=== PATIENT | female | born 1995 | race Caucasian/White ===

== ENCOUNTER 2020-06-04 11:28 | Emergency (ER) | payer OTHER, MEDICAID, SELFPAY ==
[2020-06-04] VITALS (9 sets, daily range): BP systolic 108–131; BP diastolic 55–79; PULSE 71–84; RESP 14; TEMP 37; O2SAT 93–99; BMI 34.5
[2020-06-04 14:22] LABS: Alanine Aminotransferase 14 IU/L (<35); Albumin 4.6 g/dL (3.5-5.0); Albumin Globulin Ratio 1.3 (1.0-2.8); Alkaline Phosphatase 109 U/L (38-126); Aspartate Aminotransferase 21 IU/L (14-36); BUN Creatinine Ratio 10.9 (6-22); Bilirubin Total 0.2 mg/dL (0.2-1.3); Blood Urea Nitrogen 7 mg/dL (7-17); Calcium 9.6 mg/dL (8.4-10.2); Carbon Dioxide 28 mmol/L (22-32); Chloride 104 mmol/L (98-107); Estimated Glomerular Filt Rate > 60.0 mL/min (>60); Globulin 3.5 g/dL (1.7-4.1); Glucose 98 mg/dL (70-100); HEMOLYSIS < 15 (0-50); Lipase 66 U/L (23-300); Potassium 3.9 mmol/L (3.4-5.1); Sodium 137 mmol/L (137-145); Total Protein 8.1 g/dL (6.3-8.2)
[2020-06-04 14:28] LABS: Add Manual Diff / Slide Review NO; Basophils Absolute Auto 0 /uL (0-100); Basophils Percent Auto 0.5 % (0-2); Eosinophils Absolute Auto 100 /uL (0-450); Eosinophils Percent Auto 1.8 % (2-4); Hematocrit 40.5 % (36-46); Hemoglobin 14.1 g/dL (12.0-16.0); Lymphocytes Absolute Auto 2200 /uL (1100-4500); Lymphocytes Percent Auto 29.8 % (25-40); Mean Corpuscular HGB Conc 34.9 % (30-36); Mean Corpuscular Hemoglobin 30.1 PG (26-34); Mean Corpuscular Volume 86.3 fL (80-100); Monocytes Absolute Auto 600 /uL (0-900); Monocytes Percent Auto 8.5 % (3-14); Neutrophils Absolute Auto 4500 /uL (1500-7000); Neutrophils Percent Auto 59.4 % (50-75); Platelet Count 312 X10^3/uL (150-400); Red Blood Cell Count 4.69 X10^6/uL (4.0-5.2); Red Cell Distribution Width 12.5 % (11.6-14.8); White Blood Cell Count 7.5 X10^3/uL (4.5-11.0)
[2020-06-04 14:50] LABS: Bacteria Urine None Seen
--- NOTE | 2020-06-04 15:03 | DI.CT.S_ITS ---
PROCEDURE: CT ABDOMEN PELVIS W CON INDICATIONS: abdpain, dloose stools TECHNIQUE: After the administration of intravenous contrast, 5 mm thick sections acquired from the diaphragm to the symphysis. 5 mm coronal and sagittal reformats were acquired. For radiation dose reduction, the following was used: automated exposure control, adjustment of mA and/or kV according to patient size. COMPARISON: None. FINDINGS: Image quality: Excellent. ABDOMEN: Lung bases: Lung bases are clear. Punctate calcified granuloma. Heart size is normal. Solid organs: Liver is normal in size and enhancement. Focal fatty infiltration at the falciform ligament. Gallbladder is decompressed. Biliary system is non dilated. Pancreas enhances normally. Spleen is normal in size and enhancement. No adrenal nodules. Kidneys demonstrate normal size and enhancement, without hydronephrosis. Small left cortical hypodensity which is too small to further characterize. Peritoneum and bowel: Bowel loops demonstrate normal wall thickness and caliber. Appendix is partially visualized and not dilated. No free fluid or air. Nodes and vessels: No retroperitoneal or mesenteric adenopathy by size criteria. Aorta and inferior vena cava are normal in size. Miscellaneous: Tiny fat containing periumbilical hernia. PELVIS: Genitourinary: Bladder is unremarkable. Retroverted uterus. Trace free fluid in the pelvis. Miscellaneous: No inguinal hernias or adenopathy. Bones: No suspicious bony lesions. No vertebral body compression fractures. IMPRESSION: No acute inflammatory process is identified. Trace free fluid in the pelvis is felt to be physiologic in this young female. Dictated by: Simon Adams M.D. on 06/04/2020 at 15:13 Approved by: Simon Adams M.D. on 06/04/2020 at 15:18
[2020-06-04 15:11] LABS: Culture Indicated Urine Specimen Cultured; RBC Urine 1-5/HPF (0-5/HPF); Squamous Epithelial Cell Urine 0-1 /HPF (0-5/HPF); WBC Urine 1-5/HPF (0-5/HPF)
[2020-06-04] MEDS: PANTOPRAZOLE 40 MG VIAL IV (15:40)
[2020-06-04] MEDS: ONDANSETRON 4 MG/2 ML INJ IV (15:40)
--- NOTE | 2020-06-04 16:27 | ED_ITS ---
HPI - Abdominal Pain <JESUSITA GonzalezBC - Last Filed: 06/04/20 17:10> General Chief Complaint: Abdominal Pain Stated Complaint: abd pain Time Seen by Provider: 06/04/20 12:37 Source: patient Mode of arrival: Ambulatory Limitations: no limitations History of Present Illness HPI narrative: The patient is a 24-year-old female current smoker who denies pertinent medical history who presents with a chief complaint of continued epigastric abdominal pain. She has seen and evaluated in outside facility yesterday where they did lab work and everything was well. She felt improved, went home and felt worse. She complains of 5 episodes of diarrhea over the past 2-3 days. She states this started 3 days ago when she ate lunch, which was H wrap. All the sudden she felt very uneasy in queasy in her stomach. She has had nausea with no vomiting. No fevers. No muscle aches or chills. She denies any known coronavirus exposures. She states that the other hospital told her she would feel better in 24-48 hours and if she did not to go back. She came here instead. She presents with her stepmother, and they state she had no imaging at the outside hospital. She denies any dysuria urgency or frequency. She denies any possibility of . She has not followed up with primary care provider. She is not concerned about sexually transmitted infections. She denies any vaginal discharge. Related Data Previous Rx's Medication Instructions Recorded ondansetron 4 mg PO Q6H PRN #20 tab 06/04/20 pantoprazole [Protonix] 40 mg PO DAILY #20 tab 06/04/20 sucralfate [Carafate] 10 ml PO QACHS #100 ml 06/04/20 Allergies Allergy/AdvReac Type Severity Reaction Status Date / Time No Known Drug Allergies Allergy Verified 06/04/20 11:37 Review of Systems <BRIE Gonzalez - Last Filed: 06/04/20 17:10> Review of Systems Narrative: GENERAL: Denies chills, fatigue, malaise, fever, sweats. HEENT: Denies sinus pain, ear pain, sore throat, difficulty swallowing, dizziness. RESPIRATORY: Denies dyspnea, cough, wheezing, hemoptysis, sputum. CARDIOVASCULAR: Denies chest pain, palpitations, orthopnea, edema, GASTROINTESTINAL: See HPI : Denies dysuria, frequency, incontinence, hematuria, urinary retention. MUSCULOSKELETAL: denies weakness, joint pain, or bony pain SKIN: Denies rash, skin lesions, or other NEUROLOGIC: Denies weakness, headache, numbness, change in speech, confusion, seizures, incoordination. PSYCHIATRIC: No concerning psychosocial issues. 12 point review of systems is negative except for those stated above Patient History <BRIE Gonzalez - Last Filed: 06/04/20 17:10> Social History Smoking Status: Current every day smoker Smoking Status: Current every day smoker tobacco type: vaping alcohol intake frequency: holidays/special occasions only Substance Use Type: does not use Exam <BRIE Gonzalze - Last Filed: 06/04/20 17:10> Narrative Exam Narrative: GENERAL: This is a well-nourished, well-developed patient, in no acute HEAD: Atraumatic. Normocephalic. No temporal or scalp tenderness. EYES: Pupils equal round and reactive. Extraocular motions intact. No scleral icterus. No injection or drainage. ENT: Nose without bleeding, purulent drainage or septal hematoma. Wearing a mask. Airway patent. NECK: Trachea midline. No JVD or lymphadenopathy. Supple, nontender, no meningeal signs. CARDIOVASCULAR: Regular rate and rhythm RESPIRATORY: Clear to auscultation. Breath sounds equal bilaterally. No wheezes, rales, or rhonchi. No cough. No increased respiratory effort. No accessory muscle use. GASTROINTESTINAL: Abdomen soft, pain to epigastric palpation with slight guarding, nondistended. No hepato-splenomegaly, or palpable masses. Active bowel sounds all 4 quadrants. Negative Boggs sign. EXTREMITIES: No clubbing, cyanosis, or edema. No joint tenderness, effusion, or edema noted. BACK: Nontender without deformity or crepitance. No flank tenderness. NEURO: AOx3. SKIN: No rash or erythema on visible skin Initial Vital Signs Initial Vital Signs: Vital Signs Temperature 98.6 F 06/04/20 11:37 Pulse Rate 84 06/04/20 11:37 Respiratory Rate 14 06/04/20 11:37 Blood Pressure 118/79 06/04/20 11:37 Pulse Oximetry 99 01/09/21 11:37 <Denae Franklin DO - Last Filed: 06/05/20 07:25> Initial Vital Signs Initial Vital Signs: Vital Signs Temperature 98.6 F 06/04/20 11:37 Pulse Rate 84 06/04/20 11:37 Respiratory Rate 14 06/04/20 11:37 Blood Pressure 118/79 06/04/20 11:37 Pulse Oximetry 99 06/04/20 11:37 Scores <BRIE Gonzalez - Last Filed: 06/04/20 17:10> GCS [place] coma scale eye opening: Spontaneous [place] coma scale verbal response: Orientated [place] coma scale motor response: Obey commands [place] coma scale total score: 15 Course <BRIE Gonzalez - Last Filed: 06/04/20 17:10> Orders Ordered: Discontinued Medications Ondansetron HCl (Ondansetron 4 Mg/2 Ml Inj) 4 mg IV NOW ONE Stop: 06/04/20 14:59 Last Admin: 06/04/20 15:40 Dose: 4 mg Documented by: RAJINDER Pantoprazole Sodium (Pantoprazole 40 Mg Vial) 40 mg IV NOW ONE Stop: 06/04/20 14:55 Last Admin: 06/04/20 15:40 Dose: 40 mg Documented by: RAJINDER Sucralfate (Sucralfate 1 Gm/10 Ml Oral Susp) 1 gm PO NOW ONE Stop: 06/04/20 16:51 Last Admin: 06/04/20 17:04 Dose: 1 gm Documented by: RAJINDER Vital Signs Vital signs: Vital Signs - 8 hr 06/04/20 11:37 06/04/20 14:34 06/04/20 14:35 Temperature 98.6 F Pulse Rate 84 78 Respiratory Rate 14 Blood Pressure 118/79 131/75 Pulse Oximetry 99 93 99 06/04/20 15:00 06/04/20 15:30 06/04/20 16:00 Temperature Pulse Rate 76 79 71 Respiratory Rate Blood Pressure 117/55 L Pulse Oximetry 98 99 98 <Denae Franklin DO - Last Filed: 06/05/20 07:25> Orders Ordered: Discontinued Medications Ondansetron HCl (Ondansetron 4 Mg/2 Ml Inj) 4 mg IV NOW ONE Stop: 06/04/20 14:59 Last Admin: 06/04/20 15:40 Dose: 4 mg Documented by: RAJINDER Pantoprazole Sodium (Pantoprazole 40 Mg Vial) 40 mg IV NOW ONE Stop: 06/04/20 14:55 Last Admin: 06/04/20 15:40 Dose: 40 mg Documented by: RAJINDER Sucralfate (Sucralfate 1 Gm/10 Ml Oral Susp) 1 gm PO NOW ONE Stop: 06/04/20 16:51 Last Admin: 06/04/20 17:04 Dose: 1 gm Documented by: RAJINDER Vital Signs Vital signs: Vital Signs - 8 hr 06/04/20 11:37 06/04/20 14:34 06/04/20 14:35 Temperature 98.6 F Pulse Rate 84 78 Respiratory Rate 14 Blood Pressure 118/79 131/75 Pulse Oximetry 99 93 99 06/04/20 15:00 06/04/20 15:30 06/04/20 16:00 Temperature Pulse Rate 76 79 71 Respiratory Rate Blood Pressure 117/55 L Pulse Oximetry 98 99 98 MDM - Abdominal Pain <BATSHEVA Gonzalez- - Last Filed: 06/04/20 17:10> Lab Data Attestation: I reviewed the patient's lab results. Result diagrams: 06/04/20 14:05 06/04/20 14:05 Labs: Lab Results 06/04/20 06/04/20 06/04/20 Range/Units 14:05 14:05 14:36 WBC 7.5 (4.5-11.0) X10^3/uL RBC 4.69 (4.0-5.2) X10^6/uL Hgb 14.1 (12.0-16.0) g/dL Hct 40.5 (36-46) % MCV 86.3 (80-100) fL MCH 30.1 (26-34) PG MCHC 34.9 (30-36) % RDW 12.5 (11.6-14.8) % Plt Count 312 (150-400) X10^3/uL Neut % (Auto) 59.4 (50-75) % Lymph % (Auto) 29.8 (25-40) % [place] % (Auto) 8.5 (3-14) % Eos % (Auto) 1.8 L (2-4) % Baso % (Auto) 0.5 (0-2) % Neut # (Auto) 4500 (8742-5069) /uL Lymph # (Auto) 2200 (0446-1413) /uL [place] # (Auto) 600 (0-900) /uL Eos # (Auto) 100 (0-450) /uL Baso # (Auto) 0 (0-100) /uL Sodium 137 (137-145) mmol/L Potassium 3.9 (3.4-5.1) mmol/L Chloride 104 (98-107) mmol/L Carbon Dioxide 28 (22-32) mmol/L BUN 7 (7-17) mg/dL Creatinine 0.64 (0.52-1.04) mg/dL Estimated GFR > 60.0 (>60) mL/min BUN/Creatinine Ratio 10.9 (6-22) Glucose 98 (70-100) mg/dL Calcium 9.6 (8.4-10.2) mg/dL Total Bilirubin 0.2 (0.2-1.3) mg/dL AST 21 (14-36) IU/L ALT 14 (<35) IU/L Alkaline Phosphatase 109 (38-126) U/L Total Protein 8.1 (6.3-8.2) g/dL Albumin 4.6 (3.5-5.0) g/dL Globulin 3.5 (1.7-4.1) g/dL Albumin/Globulin Ratio 1.3 (1.0-2.8) Lipase 66 (23-300) U/L Urine RBC 1-5/hpf (0-5/HPF) Urine WBC 1-5/hpf (0-5/HPF) Ur Squamous Epith Cells 0-1 /hpf (0-5/HPF) Urine Bacteria None seen (None) Ur Culture Indicated? Specimen cultured Point of care testing: Point of Care Testing Test Results Negative Urine Dip Bedside Urine Glucose Negative Bedside Urine Bilirubin - Negative Bedside Urine Ketone - Negative Urine Specific [place] 1.020 Bedside Urine Occult Blood - Negative Bedside Urine pH 6 Bedside Urine Protein - Negative Bedside Urine Urobilinogen - Negative Bedside Urine Nitrite - Negative Bedside Urine Leukocytes +/- [address] scan - abdomen/pelvis: Radiologist's Impression: [address] [place] [id number] Scan ReportSigned Patient: Zo Brunson EMR#: [id number]: [id number]:[id number]/Sex: 24 / FDate of Service: 06/04/20Loc: EDAccession Number: [id number] Procedure: CT abdomen pelvis w con Ordering Provider: Denae Beckwith PROCEDURE: CT ABDOMEN PELVIS W CON INDICATIONS: abdpain, dloose stools TECHNIQUE: After the administration of intravenous contrast, 5 mm thick sections acquired from the diaphragm to the symphysis. 5 mm coronal and sagittal reformats were acquired. For radiation dose reduction, the following was used: automated exposure control, adjustment of mA and/or kV according to patient size. COMPARISON: None. FINDINGS: Image quality: Excellent. ABDOMEN: Lung bases: Lung bases are clear. Punctate calcified granuloma. Heart size is normal. Solid organs: Liver is normal in size and enhancement. Focal fatty infiltration at the falciform ligament. Gallbladder is decompressed. Biliary system is non dilated. Pancreas enhances normally. Spleen is normal in size and enhancement. No adrenal nodules. Kidneys demonstrate normal size and enhancement, without h ydronephrosis. Small left cortical hypodensity which is too small to further characterize. Peritoneum and bowel: Bowel loops demonstrate normal wall thickness and caliber. Appendix is partially visualized and not dilated. No free fluid or air. Nodes and vessels: No retroperitoneal or mesenteric adenopathy by size criteria. Aorta and inferior vena cava are normal in size. Miscellaneous: Tiny fat containing periumbilical hernia. PELVIS: Genitourinary: Bladder is unremarkable. Retroverted uterus. Trace free fluid in the pelvis. Miscellaneous: No inguinal hernias or adenopathy. Bones: No suspicious bony lesions. No vertebral body compression fractures. IMPRESSION: No acute inflammatory process is identified. Trace free fluid in the pelvis is felt to be physiologic in this young female. Dictated by: Simon Adams M.D. on 06/04/2020 at 15:13 Approved by: Simon Adams M.D. on 06/04/2020 at 15:18 MDM Narrative Medical decision making narrative: The patient is a 24-year-old female who presents with a chief complaint of continued epigastric and abdominal pain for the past several days with loose stools. Her lab work is unremarkable, with no leukocytosis and normal renal function. The patient feels improved after a dose of Protonix. Given her repeated emergency department visits, I did obtain a CT abdomen pelvis which came back with no acute findings. I encouraged her to follow up with primary care provider in the next few days. Did elect to do a trial of Carafate. Discussed at length avoiding acid, stomach irritating foods. Encouraged follow-up with primary care provider in the next 48-72 hours. Prescriptions were provided. Discussed at length coming back to the ER for acute concerns such as abdominal pain with fever, inability keep down fluids etcetera. Patient and stepmother have no questions or concerns upon discharge. Patient has no questions or concerns upon discharge and states understanding return precautions as well as follow-up care. <Denae Franklin, DO - Last Filed: 06/05/20 07:25> Lab Data Labs: Lab Results 06/04/20 06/04/20 06/04/20 Range/Units 14:05 14:05 14:36 WBC 7.5 (4.5-11.0) X10^3/uL RBC 4.69 (4.0-5.2) X10^6/uL Hgb 14.1 (12.0-16.0) g/dL Hct 40.5 (36-46) % MCV 86.3 (80-100) fL MCH 30.1 (26-34) PG MCHC 34.9 (30-36) % RDW 12.5 (11.6-14.8) % Plt Count 312 (150-400) X10^3/uL Neut % (Auto) 59.4 (50-75) % Lymph % (Auto) 29.8 (25-40) % [place] % (Auto) 8.5 (3-14) % Eos % (Auto) 1.8 L (2-4) % Baso % (Auto) 0.5 (0-2) % Neut # (Auto) 4500 (3439-4854) /uL Lymph # (Auto) 2200 (9452-6957) /uL [place] # (Auto) 600 (0-900) /uL Eos # (Auto) 100 (0-450) /uL Baso # (Auto) 0 (0-100) /uL Sodium 137 (137-145) mmol/L Potassium 3.9 (3.4-5.1) mmol/L Chloride 104 (98-107) mmol/L Carbon Dioxide 28 (22-32) mmol/L BUN 7 (7-17) mg/dL Creatinine 0.64 (0.52-1.04) mg/dL Estimated GFR > 60.0 (>60) mL/min BUN/Creatinine Ratio 10.9 (6-22) Glucose 98 (70-100) mg/dL Calcium 9.6 (8.4-10.2) mg/dL Total Bilirubin 0.2 (0.2-1.3) mg/dL AST 21 (14-36) IU/L ALT 14 (<35) IU/L Alkaline Phosphatase 109 (38-126) U/L Total Protein 8.1 (6.3-8.2) g/dL Albumin 4.6 (3.5-5.0) g/dL Globulin 3.5 (1.7-4.1) g/dL Albumin/Globulin Ratio 1.3 (1.0-2.8) Lipase 66 (23-300) U/L Urine RBC 1-5/hpf (0-5/HPF) Urine WBC 1-5/hpf (0-5/HPF) Ur Squamous Epith Cells 0-1 /hpf (0-5/HPF) Urine Bacteria None seen (None) Ur Culture Indicated? Specimen cultured Point of care testing: Point of Care Testing Test Results Negative Urine Dip Bedside Urine Glucose Negative Bedside Urine Bilirubin - Negative Bedside Urine Ketone - Negative Urine Specific [place] 1.020 Bedside Urine Occult Blood - Negative Bedside Urine pH 6 Bedside Urine Protein - Negative Bedside Urine Urobilinogen - Negative Bedside Urine Nitrite - Negative Bedside Urine Leukocytes +/- 15 Esterase Discharge Plan Departure Patient Disposition: Home Clinical Impression: Abdominal pain Qualifiers: Abdominal location: generalized Qualified Code(s): R10.84 - Generalized abdominal pain Instructions: DI for Abdominal Pain-Adult, GERD Diet Activity Restrictions/Additional Instructions: Thank you for trusting us with your care today. As discussed your lab work and imaging came back with no acute findings. Please follow-up with primary care provider in the next few days. As discussed, please follow a light diet. Do not eat acidic foods, fried foods, spicy foods as these can all irritate your stomach. I sent 3 prescriptions to [facility] in [facility] As discussed, please come back to the emergency department for any acute concerns such as abdominal pain with fever etcetera. Prescriptions: New pantoprazole [Protonix] 40 mg tablet,delayed release (DR/EC) 40 mg PO DAILY Qty: 20 RF: 0 ondansetron 4 mg tablet,disintegrating 4 mg PO Q6H PRN (Reason: nausea and vomiting) Qty: 20 RF: 0 sucralfate [Carafate] 100 mg/mL suspension 10 ml PO QACHS Qty: 100 RF: 0 <Denae Franklin DO - Last Filed: 06/05/20 07:25> Cosign ED Attending Cosignature Attestation: I was immediately available in the department for consultation. Documentation has been reviewed.
[2020-06-04] MEDS: SUCRALFATE 1 GM/10 ML ORAL SUSP PO (17:04)
== END 2020-06-04 17:15 | disposition home or self-care (01) ==
PROVIDERS: Emergency Medicine; Emergency Provider Nurse Practitioner Family
DX: R10.84 Generalized abdominal pain (principal); R19.7 Diarrhea, unspecified
CPT/HCPCS: 36415; 74177; 80053; 81003; 81015; 81025; 83690; 85025; 87077; 87086; 96374; 96375; 99283; 99284; C9113; J2405; Q9967